=== PATIENT | female | born 1965 | race Caucasian/White ===

== ENCOUNTER 2017-05-27 22:09 | Emergency (ER) | payer MEDICAID ==
[~2017-05-27] VITALS: Ht 157.5 cm; Wt 68.5 kg
[~2017-05-27 22:09] MED LIST: ALBU2.5V11 NEB
[2017-05-27 22:23] VITALS: BP 146/94
== END 2017-05-27 22:39 | disposition left against medical advice (07) ==
LOC: ED 22:22
DX: R07.9 Chest pain, unspecified (principal); Z53.21 Procedure and treatment not carried out due to patient leaving prior to being seen by health care provider
CPT/HCPCS: 93005

== ENCOUNTER 2019-11-08 07:38 | Emergency (ER) | payer MEDICAID, OTHER ==
[~2019-11-08] VITALS: Ht 157.5 cm; Wt 71.9 kg
[2019-11-08] MEDS ORDERED: HYDROcodone/APAP 5/325 TABLET ONE (07:52)
[2019-11-08] MEDS ORDERED: HYDROcodone/APAP 5/325 TABLET PO ONE (08:00)
[2019-11-08 09:18] VITALS: BP 127/82
== END 2019-11-08 09:22 | disposition home or self-care (01) ==
LOC: ED 08:27
DX: S16.1XXA Strain of muscle, fascia and tendon at neck level, initial encounter (principal); S50.01XA Contusion of right elbow, initial encounter; F17.290 Nicotine dependence, other tobacco product, uncomplicated; Z98.1 Arthrodesis status; W01.0XXA Fall on same level from slipping, tripping and stumbling without subsequent striking against object, initial encounter; Y93.89 Activity, other specified; Y92.098 Other place in other non-institutional residence as the place of occurrence of the external cause; Y99.8 Other external cause status
CPT/HCPCS: 72125; 99284